=== PATIENT | male | born 1990 | race African-American/Black ===

== ENCOUNTER 2016-11-01 09:44 | Emergency (ER) | payer OTHER ==
[~2016-11-01] VITALS: Ht 182.9 cm; Wt 136.1 kg
[2016-11-01] MEDS ORDERED: FLEXERIL10 MG PO (11:07)
[2016-11-01] MEDS ORDERED: DICLOFENAC SODI75 MG PO (11:07)
[2016-11-01 11:34] VITALS: BP 135/79
== END 2016-11-01 11:35 | disposition home or self-care (01) ==
LOC: EME 09:44
DX: S39.012A Strain of muscle, fascia and tendon of lower back, initial encounter (principal); X50.0XXA Overexertion from strenuous movement or load, initial encounter
CPT/HCPCS: 99281; 99283; J3010